=== PATIENT | male | born 1995 | race Hispanic/Latino ===

== ENCOUNTER 2023-06-28 20:48 | Emergency (ER) | payer OTHER ==
[~2023-06-28] VITALS: Ht 180.3 cm; Wt 104.3 kg
[2023-06-28] MEDS ORDERED: 0.9%NACL 1000ML 1,000 ML IV SCH ×2 (22:00→23:00)
[2023-06-28] MEDS ORDERED: KETOROLAC 30MG VIAL (30MG/ML) IVP ONE (22:00)
[2023-06-28 22:52] LABS: APPEARANCE,URINE CLEAR (CLEAR); BILIRUBIN,URINE NEGATIVE (NEGATIVE); COLOR,URINE YELLOW (YELLOW); GLUCOSE, URINE (UA) NEGATIVE (NEGATIVE); KETONES,URINE 5 mg/dL (NEGATIVE); LEUKOCYTE ESTERASE ,URINE NEGATIVE Leu/uL (NEGATIVE); NITRATE,URINE NEGATIVE (NEGATIVE); OCCULT BLOOD,URINE SMALL (NEGATIVE); PROTEIN,URINE 100 mg/dL (NEGATIVE); UROBILINOGEN,URINE 3 mg/dL (0.2-1.0)
[2023-06-28 22:54] LABS: ADD UA MICROSCOPIC YES
[2023-06-28 23:03] LABS: BACTERIA,URINE RARE /HPF (None Seen); MUCUS,URINE MANY LPF (None Seen); SQUAMOUS EPITHELIAL CELL,UR RARE /HPF (0-2)
[2023-06-29 01:50] VITALS: BP 151/79; PULSE 56; RESP 16; O2SAT 99
== END 2023-06-29 02:12 | disposition home or self-care (01) ==
LOC: EDH 20:48
DX: R74.8 Abnormal levels of other serum enzymes (principal); R31.9 Hematuria, unspecified
CPT/HCPCS: 99284; 96374; 82550; 87088; 81001; 36415; 73130; 96361; J7030; J1885